=== PATIENT | male | born 1960 | race Caucasian/White ===

== ENCOUNTER 2017-02-28 13:16 | Emergency (ER) | payer BC, OTHER ==
[~2017-02-28] VITALS: Ht 177.8 cm; Wt 77.1 kg
[~2017-02-28 13:16] MED LIST: EPINEPHrine 0.1 MG/ML 10 ML (HOSPIRA) SYR INJ ONE; EPINEPHrine INJECTION 1 MG/ML AMP INJ ONE; LIDOCAINE BOLUS 100 MG/5 ML (IMS) SYR INJ ONE; SODIUM BICARB 8.4% 50 MEQ/50 ML (ABBOTT) SYR INJ ONE
[2017-02-28 13:34] LABS: MEAN PLATELET VOLUME 10.7 FL (7.4-10.4); RED BLOOD COUNT 4.6 10^6/uL (4.35-5.85); RED CELL DISTRIBUTION WIDTH 12.8 % (10.0-14.5); WHITE BLOOD COUNT 7.5 10^3/uL (4.3-11.0)
--- NOTE | 2017-02-28 13:50 | ED CPR ---
HPI-CPR General Stated Complaint: CODE BLUE Source of Information: EMS Exam Limitations: No Limitations History of Present Illness Time Seen by Provider: 13:16 Initial Comments Here by EMS with report of being found down, unresponsive and in cardiac arrest. Workers at the scene called EMS. Dispatch coached the workers through initiation of CPR. On fire department arrival, AED was placed and shock was advised. This was done. On EMS arrival, patient remained in cardiac arrest. EMS reports fire did give to shocks prior to their arrival. EMS did continue CPR. Ultimately they gave 4 rounds of epi and had 2 more shocks for fine V. fib and/or asystole. Patient intubated by EMS. Unsure of exact down time but was prior to 1243 when the EMS call was placed. No history available and no records available. Patient does have central scar consistent with prior CABG or open-heart surgery. Patient was found at a greater he apparently with a shovel near him and one glove off. He was apparently shoveling corn. Initial Complaints: Collapsed Witnessed Arrest: No Bystander CPR: Yes Paramedics Initial Findings: Asystole, No Pulse, No Respirations, Unresponsive , V-FIB Pre Hospital Treatment: Bag Valve Mask, CPR/Thumper, Defibrillation, IV Fluids , Epinephrine (mg) (4) Review of Systems Constitutional: see HPI Respiratory: See HPI Cardiovascular: See HPI Other Comments Unable to obtain review of systems due to cardiac arrest. Past Jzdxwin-Chuyip-Npajvv Hx Surgeries HX Surgeries: Yes Surgeries: CABG Cardiovascular Hx Cardiac Disorders: Yes Cardiac Disorders: Coronary Artery Disease Family Medical History Other History per records and report from . Physical Exam Vital Signs Capillary Refill : General Appearance: Other (unresponsive with CPR in progress) HEENT: Other (bilateral pupils fixed and dilated) Neck: Supple, JVD Respiratory: Other (bilateral breath sounds with bagging) Cardiovascular: No Edema, Other (no pulse except with CPR) Gastrointestinal: Soft, Other (nondistended) Extremity: No Pedal Edema, Other (no obvious injuries to the extremities) Neurologic/Psychiatric: Other (unresponsive with CPR in progress. No spontaneous breaths.) Skin: Warm/Dry, Pallor Progress/Results/Core Measures Results/Orders Lab Results Laboratory Tests Test 02/28/17 13:22 Range/Units White Blood Count 7.5 4.3-11.0 10^3/uL Red Blood Count 4.60 4.35-5.85 10^6/uL Hemoglobin 14.4 13.3-17.7 G/DL Hematocrit 44 40-54 % Mean Corpuscular Volume 96 80-99 FL Mean Corpuscular Hemoglobin 31 25-34 PG Mean Corpuscular Hemoglobin Concent 33 32-36 G/DL Red Cell Distribution Width 12.8 10.0-14.5 % Platelet Count 172 130-400 10^3/uL Mean Platelet Volume 10.7 H 7.4-10.4 FL Progress Note : Progress Note Seen and evaluated on arrival by EMS. CPR continued on arrival. First pulse check indicates question of 5 V. fib. Shock indicated and given. Epinephrine 1 mg IV and lidocaine 100 mg IV given. CPR continued. Pulse check shows likely asystole. End-tidal CO2 34. CPR continued and one amp of bicarbonate given. 1325: Rhythm check indicates fine V. fib. Repeat shocked again CPR continued and 1 mg of epinephrine given. 1329: CPR stopped and cardiac ultrasound performed. No cardiac activity. Epinephrine given and CPR continued. 1332: Rhythm check indicates possible fine V. fib versus asystole. Patient was shocked and repeat epi and lidocaine given. CPR continued. 1337: Recheck indicates asystole. Pupils were fixed and dilated. Ultrasound shows no cardiac activity. Reversible causes evaluated and none found. CPR discontinued. Code called at time of at 1337. 1345: Veterinary Physiologist notified. 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 Veterinary Physiologist will evaluate. 1348: is in route from [place], [place]. She knows of the severity. She was informed of her 's . She will come with family members to the ER. Departure Impression Impression: Primary Impression: Cardiopulmonary arrest Disposition: 20 Condition: Departure-Patient Inst. Decision time for Depature: 13:37 TED MACDONALD MD Feb 28, 2017 13:50
[2017-02-28] MEDS ORDERED: EPINEPHrine 0.1 MG/ML 10 ML (HOSPIRA) SYR IV ONE (13:51)
[2017-02-28 13:53] LABS: ALANINE AMINOTRANSFERASE 122 U/L (0-55); ALBUMIN 3.8 GM/DL (3.2-4.5); ALCOHOL < 10 MG/DL (<10); ANION GAP 24 MMOL/L (5-14); ASPARTATE AMINO TRANSFERASE 114 U/L (5-34); BILIRUBIN,DIRECT 0.1 MG/DL (0.0-0.3); BILIRUBIN,INDIRECT 0.2 MG/DL; BILIRUBIN,TOTAL 0.3 MG/DL (0.1-1.0); BLOOD UREA NITROGEN 21 MG/DL (7-18); BUN/CREATININE RATIO 15; CALCIUM 8.8 MG/DL (8.5-10.1); CARBON DIOXIDE 10 MMOL/L (21-32); CHLORIDE 109 MMOL/L (98-107); GFR ESTIMATED 53; GLUCOSE 290 MG/DL (70-105); MAGNESIUM 2.6 MG/DL (1.8-2.4); POTASSIUM 4.9 MMOL/L (3.6-5.0); SODIUM 143 MMOL/L (135-145); TOTAL PROTEIN 5.9 GM/DL (6.4-8.2)
[2017-02-28 13:58] LABS: TROPONIN I < 0.30 NG/ML (<0.30)
[2017-02-28 18:47] VITALS: BP 0/0
== END 2017-02-28 18:47 | disposition expired ==
LOC: ER 13:17
DX: I46.9 Cardiac arrest, cause unspecified (principal); I25.10 Atherosclerotic heart disease of native coronary artery without angina pectoris; Z95.1 Presence of aortocoronary bypass graft
CPT/HCPCS: 36415; 80048; 80076; 80320; 83735; 83880; 84484; 85027; 93041; 96360; 99291